=== PATIENT | female | born 1980 | race Caucasian/White ===

== ENCOUNTER 2024-07-05 06:15 | Day surgery (SDC) | payer OTHER ==
[~2024-07-05] VITALS: Ht 172.7 cm; Wt 71.8 kg
[2024-07-05] VITALS (10 sets, daily range): BP systolic 115–140; BP diastolic 78–97
[~2024-07-05 06:15] MED LIST: BUPR150ER PO; BUSP10 PO; ONDA4ODT MM; [UNRECOGNIZED DRUG - REMARK]
[2024-07-05] MEDS ORDERED: Lactated Ringer's 1,000 ML IV SCH (06:20)
[2024-07-05] MEDS ORDERED: ZYRTEC10 M2 PO (06:27)
[2024-07-05] MEDS ORDERED: Metoclopramide HCl 5MG / ML 2ML Vial ONE (06:47)
[2024-07-05] MEDS ORDERED: Lidocaine HCl 2% 20 ML MDV ONE (06:47)
[2024-07-05] MEDS ORDERED: propofoL 20 ML IV ONE (06:47)
[2024-07-05] MEDS ORDERED: Rocuronium Bromide 10 MG/ML 5ML Injection IV ONE ×2 (06:47→07:41)
[2024-07-05] MEDS ORDERED: Ondansetron HCl 2 MG / ML 2ML Vial ONE (06:47)
[2024-07-05] MEDS ORDERED: FentaNYL Citrate 50 MCG/ML 2 ML Injection ONE ×2 (06:48→08:44)
[2024-07-05] MEDS ORDERED: Bupivacaine 0.5% HCl 5 MG/ML 30MLVIAL ONE (07:08)
[2024-07-05] MEDS ORDERED: Acetaminophen 500 MG Tab PO ONE ×2 (07:10→08:50)
[2024-07-05] MEDS ORDERED: Sugammadex Sodium 200 MG/2ML SDV (100 MG/ML) ONE (08:09)
[2024-07-05] MEDS ORDERED: Silver Nitr/Potassium Nitrate 1 EA APPL ONE (08:24)
[2024-07-05] MEDS ORDERED: Ketorolac Tromethamine 30mg Vial IV ONE (08:50)
[2024-07-05] MEDS ORDERED: Ondansetron HCl 2 MG / ML 2ML Vial IV PRN (08:50)
[2024-07-05] MEDS ORDERED: OxyCODONE HCL 5 MG TAB PO PRN (08:50)
[2024-07-05] MEDS ORDERED: Ketorolac Tromethamine 30mg Vial ONE (08:53)
--- NOTE | 2024-07-05 10:01 | NUR ---
DISCHARGE NOTE PT A&OX4, BREATHING RA, VSS, TOLERATING PO INTAKE. PT VOIDED PRIOR TO DISCHARGE. Patient up to Ambulate independently. Gait steady. Discharge instructions reviewed with patient. Patient verbalizes understanding. Copy given to patient to take home. Dressing to procedure site clean, dry, intact with no visible drainage, swelling, erythema or bruising noted. Discharged via wheelchair to private car for ride home.ICE PACK TO SURGICAL SITES.
== END 2024-07-05 10:00 | disposition home or self-care (01) ==
LOC: ORSCMMR 06:15 → ORD 11:30 → ORSCMMR 11:30
PROVIDERS: Obstetrics & Gynecology
PROC: 0UT74ZZ Resection of Bilateral Fallopian Tubes, Percutaneous Endoscopic Approach (ICD-10-PCS; principal; 2024-07-05 07:30)
PROC: 0UDB7ZZ Extraction of Endometrium, Via Natural or Artificial Opening (ICD-10-PCS; principal; 2024-07-05 07:30)
DX: R10.2 Pelvic and perineal pain (principal); Z30.2 Encounter for sterilization; N80.319 Endometriosis of the anterior cul-de-sac, unspecified depth; F41.9 Anxiety disorder, unspecified; Z79.899 Other long term (current) drug therapy
CPT/HCPCS: 86850; 86900; 86901; 88302; 88305; A9270; J1885; J2405; J2704; J2765; J3010; J7120